=== PATIENT | male | born 1955 | race Hispanic/Latino ===

== ENCOUNTER 2021-09-10 11:09 | Emergency (ER) | payer MEDICARE, OTHER ==
[2021-09-10] MEDS ORDERED: SODIUM CHLORIDE 0.9% 1000 ML 1,000 ML IV ONE (11:17)
[2021-09-10 12:13] LABS: Basophils % (Auto) 0.6 % (0.0-1.8); Eosinophils % (Auto) 0.8 % (0.0-4.3); Lymphocytes % (Auto) 15.7 % (13.4-35.0); Monocytes % (Auto) 6.5 % (0.0-7.3)
[2021-09-10 12:18] LABS: INR 0.94 (0.87-1.13)
[2021-09-10 12:25] LABS: Basophils # (Auto) 0.1 K/mm3 (0.0-0.1); Eosinophils # (Auto) 0.1 K/mm3 (0.0-0.4); Hematocrit 44.6 % (35.5-45.6); Hemoglobin 14.8 gm/dl (11.8-15.2); Lymphocytes # (Auto) 1.3 K/mm3 (1.2-5.4); Mean Corpuscular HGB Conc 33 % (32-34); Mean Corpuscular Volume 88 fl (84-94); Monocytes # (Auto) 0.5 K/mm3 (0.0-0.8); Platelet Count 206 K/mm3 (140-440); Red Blood Count 5.07 M/mm3 (3.65-5.03); Red Cell Distribution Width 14.6 % (13.2-15.2)
[2021-09-10 12:34] LABS: Alanine Aminotransferase 18 units/L (7-56); Albumin 4.5 g/dL (3.9-5); BUN/Creatinine Ratio 24; Blood Urea Nitrogen 22 mg/dL (9-20); Calcium 9.6 mg/dL (8.4-10.2); Hemolysis Index 21
--- NOTE | 2021-09-10 13:35 | Cat Scan Report ---
CT HEAD WITHOUT CONTRAST INDICATION / CLINICAL INFORMATION: ams. TECHNIQUE: All CT scans at this location are performed using CT dose reduction for ALARA by means of automated e xposure control. COMPARISON: Head CT 06/18/2021 FINDINGS: HEMORRHAGE: No evidence of intracranial hemorrhage or extra-axial fluid collection. EXTRA-AXIAL SPACES: Cortical sulci, sylvian fissures and basilar cisterns have an unremarkable appear ance. VENTRICULAR SYSTEM: The third and lateral ventricles are of normal size and configuration. CEREBRAL PARENCHYMA: Subtle evidence of a small deep infarction in the medial aspect of the left thal amus. In retrospect this can be demonstrated on prior study 06/18/2019. No indication of recent infarct ion is observed. MIDLINE SHIFT OR HERNIATION: There is no mass effect. CEREBELLUM / BRAINSTEM: Encephalomalacia seen along the posterior aspect of the right cerebellar roxanne sphere secondary to remote right cerebellar infarction. This is unchanged. Brainstem and cerebellum h ave an otherwise unremarkable appearance. MIDLINE STRUCTURES:No abnormalities of the pituitary gland or pineal region are identified. INTRACRANIAL VESSELS: Calcified atherosclerotic plaque is seen along the course of the cavernous segm ents of both internal carotid arteries extending up into the communicating segments bilaterally. ORBITS: visualized portions of the orbits have an unremarkable appearance. SOFT TISSUES of HEAD: No significant abnormality. CALVARIUM: Evaluation of bone windows reveals no abnormalities. PARANASAL SINUSES / MASTOID AIR CELLS: Inflammatory changes are present in the right sphenoid sinus u nchanged from prior study. Visualized portions of the paranasal sinuses are otherwise free from infla mmatory mucosal disease. Mastoid air cells are normally pneumatized. Abnormal soft tissue attenuation material is present in the right external auditory canal. This could represent a pledget or cerumen. Correlation with otoscopic evaluation is advised. IMPRESSION: 1. Small deep left thalamic infarction. In retrospect this can be identified on previous head CT 2021. 2. No acute intracranial abnormality. 3. Correlation with otoscopic evaluation is advised to further evaluate an abnormality in the right e xternal auditory canal. Signer Name: Jj Willis MD Signed: 09/10/2021 1:31 PM Workstation Name: [id number]
--- NOTE | 2021-09-10 13:54 | XRay Report ---
CHEST 1 VIEW 09/10/2021 12:45 PM INDICATION / CLINICAL INFORMATION: ams. COMPARISON: 06/16/2021 FINDINGS: SUPPORT DEVICES: None. HEART / MEDIASTINUM: No significant abnormality. LUNGS / PLEURA: No significant pulmonary or pleural abnormality. No pneumothorax. ADDITIONAL FINDINGS: Right costophrenic angles is not completely included IMPRESSION: 1. No acute findings. Signer Name: Petar Freedman MD Signed: 09/10/2021 1:49 PM Workstation Name: [id number]
[2021-09-10 16:30] LABS: Amphetamine Screen,Urine Negative; Benzodiazepines Screen,Urine Negative; Cannabinoid Screen,Urine Negative; Cocaine Screen,Urine Negative; Methadone Screen,Urine Negative; Opiate Screen,Urine Negative
[2021-09-10 16:43] LABS: Bilirubin,Urine NEG (Negative); Blood,Urine NEG (Negative); Color,Urine Yellow (Yellow); Mucus,Urine 2+ /HPF; Protein,Urine <15 mg/dL mg/dL (Negative); Urobilinogen,Urine < 2.0 mg/dL (<2.0)
--- NOTE | 2021-09-10 17:18 | Emergency Department Report ---
ED Altered Mental Status HPI - General Chief Complaint: Altered Mental Status Stated Complaint: AMS Time Seen by Provider: 09/10/21 11:17 Source: EMS Mode of arrival: Stretcher Limitations: Altered Mental Status, Physical Limitation - History of Present Illness MD Complaint: altered mental status, confusion -: Gradual Severity: mild Consistency of Symptoms: constant Context: history of similar presen Associated Symptoms: denies: denies other symptoms, chest pain, cough, diaphoresis, malaise, nausea/vomiting, rash - Related Data Home Medications Medication Instructions Recorded Confirmed Last Taken Amlodipine Besylate [Norvasc] 10 mg PO DAILY 06/17/21 06/24/21 Unknown Benztropine [Cogentin] 1 mg PO DAILY 06/17/21 06/24/21 Unknown Acetaminophen [Acetaminophen TAB] 325 mg PO QAM&QHS PRN 06/22/21 06/24/21 06/16/21 ALBUTEROL NEB's [Proventil 0.083% 2.5 mg IH Q3HR PRN 06/24/21 06/24/21 Unknown NEBS] Previous Rx's Medication Instructions Recorded Last Taken Type Ondansetron [Zofran ODT TAB] 4 mg PO Q8HR PRN #20 tab.rapdis 02/28/16 Unknown Rx Aspirin EC [Ecotrin] 325 mg PO QDAY #30 tablet 06/20/18 Unknown Rx AtorvaSTATin [Lipitor] 40 mg PO QHS #30 tablet 06/20/18 Unknown Rx amLODIPine 5 mg PO QDAY #30 tablet 06/20/18 Unknown Rx Aspirin EC [Ecotrin] 325 mg PO QDAY #30 tab 06/22/21 Unknown Rx Atorvastatin Calcium [Lipitor] 80 mg PO DAILY #30 tab 06/22/21 Unknown Rx donepeziL [Aricept] 10 mg PO QDAY #30 tab 06/22/21 Unknown Rx Paliperidone [Invega] 6 mg PO DAILY 30 Days #30 06/27/21 Unknown Rx QUEtiapine [SEROquel] 25 mg PO BID 30 Days #60 tablet 06/27/21 Unknown Rx VALPROIC ACID Liq [DepaKENE Liq] 125 mg PO DAILY 30 Days #150 06/27/21 Unknown Rx oral.liqd Venlafaxine HCl [Venlafaxine] 100 mg PO DAILY 30 Days #30 06/27/21 Unknown Rx Zolpidem [Ambien] 5 mg PO QHS PRN 30 Days #15 tablet 06/27/21 Unknown Rx Allergies Allergy/AdvReac Type Severity Reaction Status Date / Time No Known Allergies Allergy Verified 09/10/21 11:21 ED Review of Systems ROS: Stated complaint: AMS Other details as noted in HPI Constitutional: denies: chills, fever Eyes: denies: eye pain, eye discharge, vision change ENT: denies: ear pain, throat pain Respiratory: denies: cough, shortness of breath, wheezing Cardiovascular: denies: chest pain, palpitations Endocrine: no symptoms reported Gastrointestinal: denies: abdominal pain, nausea, diarrhea Genitourinary: denies: urgency, dysuria Musculoskeletal: denies: back pain, joint swelling, arthralgia Skin: denies: rash, lesions Neurological: denies: headache, weakness, paresthesias Psychiatric: denies: anxiety, depression Hematological/Lymphatic: denies: easy bleeding, easy bruising ED Past Medical Hx - Past Medical History Hx Hypertension: Yes Hx CVA: Yes Hx Congestive Heart Failure: No Hx Diabetes: No Hx Renal Disease: No Hx Arthritis: No Hx Seizures: No Hx Psychiatric Treatment: Yes (Schizophrenia) Hx Asthma: No Hx COPD: No Hx Dementia: Yes Additional medical history: high cholesterol - Surgical History Hx Cholecystectomy: No Hx Appendectomy: No - Social History Smoking Status: Former Smoker - Medications Home Medications: Home Medications Medication Instructions Recorded Confirmed Last Taken Type Ondansetron [Zofran ODT TAB] 4 mg PO Q8HR PRN #20 tab.rapdis 02/28/16 06/20/18 Unknown Rx Aspirin EC [Ecotrin] 325 mg PO QDAY #30 tablet 06/20/18 Unknown Rx AtorvaSTATin [Lipitor] 40 mg PO QHS #30 tablet 06/20/18 Unknown Rx amLODIPine 5 mg PO QDAY #30 tablet 06/20/18 Unknown Rx Amlodipine Besylate [Norvasc] 10 mg PO DAILY 06/17/21 06/24/21 Unknown History Benztropine [Cogentin] 1 mg PO DAILY 06/17/21 06/24/21 Unknown History Acetaminophen [Acetaminophen TAB] 325 mg PO QAM&QHS PRN 06/22/21 06/24/21 06/16/21 History Aspirin EC [Ecotrin] 325 mg PO QDAY #30 tab 06/22/21 06/24/21 Unknown Rx Atorvastatin Calcium [Lipitor] 80 mg PO DAILY #30 tab 06/22/21 06/24/21 Unknown Rx donepeziL [Aricept] 10 mg PO QDAY #30 tab 06/22/21 06/24/21 Unknown Rx ALBUTEROL NEB's [Proventil 0.083% 2.5 mg IH Q3HR PRN 06/24/21 06/24/21 Unknown History NEBS] Paliperidone [Invega] 6 mg PO DAILY 30 Days #30 06/27/21 Unknown Rx QUEtiapine [SEROquel] 25 mg PO BID 30 Days #60 tablet 06/27/21 Unknown Rx VALPROIC ACID Liq [DepaKENE Liq] 125 mg PO DAILY 30 Days #150 06/27/21 Unknown Rx oral.liqd Venlafaxine HCl [Venlafaxine] 100 mg PO DAILY 30 Days #30 06/27/21 Unknown Rx Zolpidem [Ambien] 5 mg PO QHS PRN 30 Days #15 tablet 06/27/21 Unknown Rx ED Physical Exam - General Limitations: Altered Mental Status, Physical Limitation General appearance: alert, in no apparent distress - Head Head exam: Present: atraumatic, normocephalic - Eye Eye exam: Present: normal appearance - ENT ENT exam: Present: mucous membranes moist - Neck Neck exam: Present: normal inspection - Respiratory Respiratory exam: Present: normal lung sounds bilaterally. Absent: respiratory distress - Cardiovascular Cardiovascular Exam: Present: regular rate, normal rhythm. Absent: systolic murmur, diastolic murmur, rubs, gallop - GI/Abdominal GI/Abdominal exam: Present: soft, normal bowel sounds - Rectal Rectal exam: Present: deferred - Extremities Exam Extremities exam: Present: normal inspection - Back Exam Back exam: Present: normal inspection - Neurological Exam Neurological exam: Present: alert, oriented X3 - Psychiatric Psychiatric exam: Present: normal affect, normal mood - Skin Skin exam: Present: warm, dry, intact, normal color. Absent: rash ED Course Vital Signs 09/10/21 09/10/21 09/10/21 11:13 11:21 11:52 Temperature 97.6 F Pulse Rate 77 69 Respiratory 16 14 13 Rate Blood Pressure Blood Pressure 178/89 [Left] O2 Sat by Pulse 96 98 97 Oximetry 09/10/21 09/10/2109/10/22 12:00 13:20 14:00 Temperature Pulse Rate 76 78 58 L Respiratory 18 16 Rate Blood Pressure 137/86 137/86 135/69 Blood Pressure [Left] O2 Sat by Pulse 98 100 95 Oximetry 09/10/21 09/10/21 09/10/21 14:30 14:32 15:00 Temperature 97.9 F Pulse Rate 75 75 57 L Respiratory 16 17 Rate Blood Pressure 137/86 148/73 Blood Pressure [Left] O2 Sat by Pulse 98 99 Oximetry 09/10/21 16:00 Temperature Pulse Rate 77 Respiratory 24 Rate Blood Pressure 157/81 Blood Pressure [Left] O2 Sat by Pulse 99 Oximetry - Lab Data Result diagrams: 09/10/21 11:53 09/10/21 11:53 Lab Results 09/10/21 09/10/21 09/10/21 Range/Units 11:53 11:53 11:53 WBC 8.1 (4.5-11.0) K/mm3 RBC 5.07 H (3.65-5.03) M/mm3 Hgb 14.8 (11.8-15.2) gm/dl Hct 44.6 (35.5-45.6) % MCV 88 (84-94) fl MCH 29 (28-32) pg MCHC 33 (32-34) % RDW 14.6 (13.2-15.2) % Plt Count 206 (140-440) K/mm3 Lymph % (Auto) 15.7 (13.4-35.0) % [place] % (Auto) 6.5 (0.0-7.3) % Eos % (Auto) 0.8 (0.0-4.3) % Baso % (Auto) 0.6 (0.0-1.8) % Lymph # (Auto) 1.3 (1.2-5.4) K/mm3 [place] # (Auto) 0.5 (0.0-0.8) K/mm3 Eos # (Auto) 0.1 (0.0-0.4) K/mm3 Baso # (Auto) 0.1 (0.0-0.1) K/mm3 Seg Neutrophils % 76.4 H (40.0-70.0) % Seg Neutrophils # 6.1 (1.8-7.7) K/mm3 PT 13.6 (12.2-14.9) Sec. INR 0.94 (0.87-1.13) Sodium 139 (137-145) mmol/L Potassium 4.7 (3.6-5.0) mmol/L Chloride 105.6 (98-107) mmol/L Carbon Dioxide 20 L (22-30) mmol/L Anion Gap 18 mmol/L BUN 22 H (9-20) mg/dL Creatinine 0.9 (0.8-1.3) mg/dL Estimated GFR > 60 ml/min BUN/Creatinine Ratio 24 % Glucose 107 H (75-100) mg/dL Lactic Acid (0.7-2.0) mmol/L Calcium 9.6 (8.4-10.2) mg/dL Total Bilirubin 0.40 (0.1-1.2) mg/dL AST 14 (5-40) units/L ALT 18 (7-56) units/L Alkaline Phosphatase 126 (35-129) units/L Troponin T < 0.010 (0.00-0.029) ng/mL Total Protein 7.0 (6.3-8.2) g/dL Albumin 4.5 (3.9-5) g/dL Albumin/Globulin Ratio 1.8 % Urine Color (Yellow) Urine Turbidity (Clear) Urine pH (5.0-7.0) Ur Specific [place] (1.003-1.030) Urine Protein (Negative) mg/dL Urine Glucose (UA) (Negative) mg/dL Urine Ketones (Negative) mg/dL Urine Blood (Negative) Urine Nitrite (Negative) Urine Bilirubin (Negative) Urine Urobilinogen (<2.0) mg/dL Ur Leukocyte Esterase (Negative) Urine WBC (Auto) (0.0-6.0) /HPF Urine RBC (Auto) (0.0-6.0) /HPF U Epithel Cells (Auto) (0-13.0) /HPF Urine Mucus /HPF Salicylates (2.8-20.0) mg/dL Urine Opiates Screen Urine Methadone Screen Acetaminophen (10.0-30.0) ug/mL Ur Barbiturates Screen Ur Phencyclidine Scrn Ur Amphetamines Screen U Benzodiazepines Scrn Urine Cocaine Screen U Marijuana (THC) Screen Drugs of Abuse Note Plasma/Serum Alcohol (0-0.07) % 09/10/21 09/10/21 09/10/21 Range/Units 11:53 11:53 11:53 WBC (4.5-11.0) K/mm3 RBC (3.65-5.03) M/mm3 Hgb (11.8-15.2) gm/dl Hct (35.5-45.6) % MCV (84-94) fl MCH (28-32) pg MCHC (32-34) % RDW (13.2-15.2) % Plt Count (140-440) K/mm3 Lymph % (Auto) (13.4-35.0) % Dawson % (Auto) (0.0-7.3) % Eos % (Auto) (0.0-4.3) % Baso % (Auto) (0.0-1.8) % Lymph # (Auto) (1.2-5.4) K/mm3 [place] # (Auto) (0.0-0.8) K/mm3 Eos # (Auto) (0.0-0.4) K/mm3 Baso # (Auto) (0.0-0.1) K/mm3 Seg Neutrophils % (40.0-70.0) % Seg Neutrophils # (1.8-7.7) K/mm3 PT (12.2-14.9) Sec. INR (0.87-1.13) Sodium (137-145) mmol/L Potassium (3.6-5.0) mmol/L Chloride (98-107) mmol/L Carbon Dioxide (22-30) mmol/L Anion Gap mmol/L BUN (9-20) mg/dL Creatinine (0.8-1.3) mg/dL Estimated GFR ml/min BUN/Creatinine Ratio % Glucose (75-100) mg/dL Lactic Acid 2.20 H* (0.7-2.0) mmol/L Calcium (8.4-10.2) mg/dL Total Bilirubin (0.1-1.2) mg/dL AST (5-40) units/L ALT (7-56) units/L Alkaline Phosphatase (35-129) units/L Troponin T (0.00-0.029) ng/mL Total Protein (6.3-8.2) g/dL Albumin (3.9-5) g/dL Albumin/Globulin Ratio % Urine Color (Yellow) Urine Turbidity (Clear) Urine pH (5.0-7.0) Ur Specific [place] (1.003-1.030) Urine Protein (Negative) mg/dL Urine Glucose (UA) (Negative) mg/dL Urine Ketones (Negative) mg/dL Urine Blood (Negative) Urine Nitrite (Negative) Urine Bilirubin (Negative) Urine Urobilinogen (<2.0) mg/dL Ur Leukocyte Esterase (Negative) Urine WBC (Auto) (0.0-6.0) /HPF Urine RBC (Auto) (0.0-6.0) /HPF U Epithel Cells (Auto) (0-13.0) /HPF Urine Mucus /HPF Salicylates < 0.3 L (2.8-20.0) mg/dL Urine Opiates Screen Urine Methadone Screen Acetaminophen 5.0 L (10.0-30.0) ug/mL Ur Barbiturates Screen Ur Phencyclidine Scrn Ur Amphetamines Screen U Benzodiazepines Scrn Urine Cocaine Screen U Marijuana (THC) Screen Drugs of Abuse Note Plasma/Serum Alcohol (0-0.07) % 09/10/21 09/10/21 09/10/21 Range/Units 11:53 Unknown Unknown WBC (4.5-11.0) K/mm3 RBC (3.65-5.03) M/mm3 Hgb (11.8-15.2) gm/dl Hct (35.5-45.6) % MCV (84-94) fl MCH (28-32) pg MCHC (32-34) % RDW (13.2-15.2) % Plt Count (140-440) K/mm3 Lymph % (Auto) (13.4-35.0) % Dawson % (Auto) (0.0-7.3) % Eos % (Auto) (0.0-4.3) % Baso % (Auto) (0.0-1.8) % Lymph # (Auto) (1.2-5.4) K/mm3 [place] # (Auto) (0.0-0.8) K/mm3 Eos # (Auto) (0.0-0.4) K/mm3 Baso # (Auto) (0.0-0.1) K/mm3 Seg Neutrophils % (40.0-70.0) % Seg Neutrophils # (1.8-7.7) K/mm3 PT (12.2-14.9) Sec. INR (0.87-1.13) Sodium (137-145) mmol/L Potassium (3.6-5.0) mmol/L Chloride (98-107) mmol/L Carbon Dioxide (22-30) mmol/L Anion Gap mmol/L BUN (9-20) mg/dL Creatinine (0.8-1.3) mg/dL Estimated GFR ml/min BUN/Creatinine Ratio % Glucose (75-100) mg/dL Lactic Acid (0.7-2.0) mmol/L Calcium (8.4-10.2) mg/dL Total Bilirubin (0.1-1.2) mg/dL AST (5-40) units/L ALT (7-56) units/L Alkaline Phosphatase (35-129) units/L Troponin T (0.00-0.029) ng/mL Total Protein (6.3-8.2) g/dL Albumin (3.9-5) g/dL Albumin/Globulin Ratio % Urine Color Yellow (Yellow) Urine Turbidity Clear (Clear) Urine pH 5.0 (5.0-7.0) Ur Specific [place] 1.025 (1.003-1.030) Urine Protein <15 mg/dl (Negative) mg/dL Urine Glucose (UA) Neg (Negative) mg/dL Urine Ketones Neg (Negative) mg/dL Urine Blood Neg (Negative) Urine Nitrite Neg (Negative) Urine Bilirubin Neg (Negative) Urine Urobilinogen < 2.0 (<2.0) mg/dL Ur Leukocyte Esterase Neg (Negative) Urine WBC (Auto) 1.0 (0.0-6.0) /HPF Urine RBC (Auto) 1.0 (0.0-6.0) /HPF U Epithel Cells (Auto) < 1.0 (0-13.0) /HPF Urine Mucus 2+ /HPF Salicylates (2.8-20.0) mg/dL Urine Opiates Screen Negative Urine Methadone Screen Negative Acetaminophen (10.0-30.0) ug/mL Ur Barbiturates Screen Negative Ur Phencyclidine Scrn Negative Ur Amphetamines Screen Negative U Benzodiazepines Scrn Negative Urine Cocaine Screen Negative U Marijuana (THC) Screen Negative Drugs of Abuse Note Disclamer Plasma/Serum Alcohol < 0.01 (0-0.07) % - EKG Data -: EKG Interpreted by Me EKG shows normal: sinus rhythm Rate: normal When compared to previous EKG there are: other (bigemniy) - Radiology Data Radiology results: report reviewed, image reviewed - Medical Decision Making work up unremarkable , vss no distress, back to [facility] history of bipolar disorder Critical care attestation.: If time is entered above; I have spent that time in minutes in the direct care of this critically ill patient, excluding procedure time. ED Disposition Clinical Impression: Altered mental status, Bipolar 1 disorder Disposition: HOME / SELF CARE / HOMELESS Is pt being admited?: No Does the pt Need Aspirin: No Condition: Stable Referrals: CROW HERNANDEZ MD [Primary Care Provider] - 3-5 Days
[2021-09-10 20:00] VITALS: BP 131/60
--- NOTE | 2021-09-11 09:33 | Electrocardiograph Report ---
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
== END 2021-09-10 20:49 | disposition home or self-care (01) ==
LOC: ED 11:09
DX: R41.82 Altered mental status, unspecified (principal); F31.9 Bipolar disorder, unspecified; I10 Essential (primary) hypertension; F20.9 Schizophrenia, unspecified; R79.1 Abnormal coagulation profile; E78.00 Pure hypercholesterolemia, unspecified; Z79.82 Long term (current) use of aspirin; Z79.899 Other long term (current) drug therapy
CPT/HCPCS: 36415; 70450; 71045; 80053; 80307; 81001; 82140; 82962; 84484; 85025; 85610; 93005; 96360; 99285; J7030; 80320; G0480

== ENCOUNTER 2021-10-03 14:28 | Emergency (ER) | payer MEDICARE ==
--- NOTE | 2021-10-03 21:38 | Emergency Department Report ---
ED General Adult HPI - General Chief complaint: Medical Clearance Stated complaint: CHECKE OUT Time Seen by Provider: 10/03/21 21:25 Source: EMS ( EMS documentation not available at time of chart dictation ), RN notes reviewed, old records reviewed Mode of arrival: Stretcher Limitations: No Limitations - History of Present Illness Initial comments: The patient is a pleasant and cooperative 65-year-old gentleman who states that he presents to the emergency room because he is homeless and does not have a place to go. He denies physical pain. He denies homicidality and suicidality. He denies hallucinations, overdose, access to guns and firearms. He denies physical pain -: This evening Severity scale (0 -10): 0 Improves with: none Worsens with: none Associated Symptoms: denies other symptoms - Related Data Home Medications Medication Instructions Recorded Confirmed Last Taken Amlodipine Besylate [Norvasc] 10 mg PO DAILY 06/17/21 06/24/21 Unknown Benztropine [Cogentin] 1 mg PO DAILY 06/17/21 06/24/21 Unknown Acetaminophen [Acetaminophen TAB] 325 mg PO QAM&QHS PRN 06/22/21 06/24/21 06/16/21 ALBUTEROL NEB's [Proventil 0.083% 2.5 mg IH Q3HR PRN 06/24/21 06/24/21 Unknown NEBS] Previous Rx's Medication Instructions Recorded Last Taken Type Ondansetron [Zofran ODT TAB] 4 mg PO Q8HR PRN #20 tab.rapdis 02/28/16 Unknown Rx Aspirin EC [Ecotrin] 325 mg PO QDAY #30 tab 06/22/21 Unknown Rx Atorvastatin Calcium [Lipitor] 80 mg PO DAILY #30 tab 06/22/21 Unknown Rx donepeziL [Aricept] 10 mg PO QDAY #30 tab 06/22/21 Unknown Rx Paliperidone [Invega] 6 mg PO DAILY 30 Days #30 06/27/21 Unknown Rx QUEtiapine [SEROquel] 25 mg PO BID 30 Days #60 tablet 06/27/21 Unknown Rx VALPROIC ACID Liq [DepaKENE Liq] 125 mg PO DAILY 30 Days #150 06/27/21 Unknown Rx oral.liqd Venlafaxine HCl [Venlafaxine] 100 mg PO DAILY 30 Days #30 06/27/21 Unknown Rx Zolpidem [Ambien] 5 mg PO QHS PRN 30 Days #15 tablet 06/27/21 Unknown Rx Albuterol Sulfate [Proair 90 mcg IH Q4HR PRN #2 aer.pow.ba 10/03/21 Unknown Rx Respiclick] Aspirin EC [Ecotrin] 325 mg PO QDAY #30 tablet 10/03/21 Unknown Rx AtorvaSTATin [Lipitor] 40 mg PO QHS #30 tablet 10/03/21 Unknown Rx amLODIPine 5 mg PO QDAY #30 tablet 10/03/21 Unknown Rx Allergies Allergy/AdvReac Type Severity Reaction Status Date / Time No Known Allergies Allergy Verified 10/03/21 14:45 ED Review of Systems ROS: Stated complaint: CHECKE OUT Other details as noted in HPI Comment: All other systems reviewed and negative ED Past Medical Hx - Past Medical History Hx Hypertension: Yes Hx CVA: Yes Hx Congestive Heart Failure: No Hx Diabetes: No Hx Renal Disease: No Hx Arthritis: No Hx Seizures: No Hx Psychiatric Treatment: Yes (Schizophrenia) Hx Asthma: No Hx COPD: No Hx Dementia: Yes Additional medical history: high cholesterol - Surgical History Hx Cholecystectomy: No Hx Appendectomy: No - Social History Smoking Status: Former Smoker - Medications Home Medications: Home Medications Medication Instructions Recorded Confirmed Last Taken Type Ondansetron [Zofran ODT TAB] 4 mg PO Q8HR PRN #20 tab.rapdis 02/28/16 06/20/18 Unknown Rx Amlodipine Besylate [Norvasc] 10 mg PO DAILY 06/17/21 06/24/21 Unknown History Benztropine [Cogentin] 1 mg PO DAILY 06/17/21 06/24/21 Unknown History Acetaminophen [Acetaminophen TAB] 325 mg PO QAM&QHS PRN 06/22/21 06/24/21 06/16/21 History Aspirin EC [Ecotrin] 325 mg PO QDAY #30 tab 06/22/21 06/24/21 Unknown Rx Atorvastatin Calcium [Lipitor] 80 mg PO DAILY #30 tab 06/22/21 06/24/21 Unknown Rx donepeziL [Aricept] 10 mg PO QDAY #30 tab 06/22/21 06/24/21 Unknown Rx ALBUTEROL NEB's [Proventil 0.083% 2.5 mg IH Q3HR PRN 06/24/21 06/24/21 Unknown History NEBS] Paliperidone [Invega] 6 mg PO DAILY 30 Days #30 06/27/21 Unknown Rx QUEtiapine [SEROquel] 25 mg PO BID 30 Days #60 tablet 06/27/21 Unknown Rx VALPROIC ACID Liq [DepaKENE Liq] 125 mg PO DAILY 30 Days #150 06/27/21 Unknown Rx oral.liqd Venlafaxine HCl [Venlafaxine] 100 mg PO DAILY 30 Days #30 06/27/21 Unknown Rx Zolpidem [Ambien] 5 mg PO QHS PRN 30 Days #15 tablet 06/27/21 Unknown Rx Albuterol Sulfate [Proair 90 mcg IH Q4HR PRN #2 aer.pow.ba 10/03/21 Unknown Rx Respiclick] Aspirin EC [Ecotrin] 325 mg PO QDAY #30 tablet 10/03/21 Unknown Rx AtorvaSTATin [Lipitor] 40 mg PO QHS #30 tablet 10/03/21 Unknown Rx amLODIPine 5 mg PO QDAY #30 tablet 10/03/21 Unknown Rx ED Physical Exam - General Limitations: No Limitations General appearance: alert, in no apparent distress - Head Head exam: Present: atraumatic, normocephalic - Eye Eye exam: Present: normal appearance, EOMI. Absent: nystagmus - ENT ENT exam: Present: normal exam, normal orophraynx, mucous membranes moist, normal external ear exam - Neck Neck exam: Present: normal inspection, full ROM. Absent: tenderness, meningismus - Respiratory Respiratory exam: Present: normal lung sounds bilaterally. Absent: respiratory distress, wheezes, rales, rhonchi, stridor, decreased breath sounds - Cardiovascular Cardiovascular Exam: Present: regular rate, normal rhythm, normal heart sounds. Absent: bradycardia, tachycardia, irregular rhythm, systolic murmur, diastolic murmur, rubs, gallop - GI/Abdominal GI/Abdominal exam: Present: soft, normal bowel sounds. Absent: distended, tenderness, guarding, rebound, rigid - Rectal Rectal exam: Present: deferred - Extremities Exam Extremities exam: Present: normal inspection, full ROM, other (2+ pulses noted in the bilateral upper extremities. There is no long bony tenderness. The muscular compartments are soft. The pelvis is stable). Absent: pedal edema - Back Exam Back exam: Present: normal inspection, full ROM. Absent: tenderness, CVA tenderness (R), CVA tenderness (L), paraspinal tenderness, vertebral tenderness - Neurological Exam Neurological exam: Present: alert, normal gait, other (No facial droop. Tongue midline. Extraocular movements intact bilaterally. Facial sensation intact to light touch in V1, V2, V3 distribution bilaterally. 5 and a 5 strength in 4 extremities. Sensation intact to light touch in 4 extremities.). Absent: motor sensory deficit - Psychiatric Psychiatric exam: Present: flat affect - Skin Skin exam: Present: warm, dry, intact, normal color. Absent: rash ED Course Vital Signs 10/03/21 10/03/21 14:43 23:19 Temperature 98.7 F Pulse Rate 68 68 Respiratory 16 12 Rate Blood Pressure 130/82 136/87 [Right] O2 Sat by Pulse 99 100 Oximetry ED Medical Decision Making - Lab Data Vital Signs 10/03/21 14:43 Temperature 98.7 F Pulse Rate 68 Respiratory 16 Rate Blood Pressure 130/82 [Right] O2 Sat by Pulse 99 Oximetry - Medical Decision Making Differential diagnosis, including but not limited to: Encounter for medical screening examination, medication refill Assessment and plan: 65-year-old gentleman, who is afebrile, with reassuring vital signs, clinically sober, with a GCS of 15, who presents to the ER today with a complaint of "I need some place to stay." He denies medical complaints and physical pain. He does not endorse any psychiatric symptoms. His physical exam is benign and unremarkable. He is resting comfortably in his stretcher, and in no acute distress. He will be given a list of outpatient homeless senior care resources. He will also be given a list of primary care doctors that he may follow-up with. He does not appear to have an emergent medical psychiatric condition present at this time. Critical care attestation.: If time is entered above; I have spent that time in minutes in the direct care of this critically ill patient, excluding procedure time. ED Disposition Clinical Impression: Encounter for medical screening examination, Medication refill Disposition: 01 HOME / SELF CARE / HOMELESS Is pt being admited?: No Does the pt Need Aspirin: No Condition: Good Additional Instructions: Please take the prescribed medications as directed. Please follow-up with an outpatient primary care doctor within the next month. Please reference a list of homeless senior care resources that have been provided to the patient. Please use the [facility] ([facility] affordable prescription card to afford affordable prescriptions. Follow-up with a psychiatrist within the next month. Please return to the emergency room right away with new pain, worsened pain, migration of pain, projectile vomiting, change in mental status, confusion, inability tolerate liquid feeds, new, worsened or different symptoms not present on the initial emergency room evaluation Prescriptions: AtorvaSTATin [Lipitor] 40 mg PO QHS #30 tablet amLODIPine 5 mg PO QDAY #30 tablet Aspirin EC [Ecotrin] 325 mg PO QDAY #30 tablet Albuterol Sulfate [Proair Respiclick] 90 mcg IH Q4HR PRN #2 aer.pow.ba PRN Reason: Wheezing Referrals: [facility] [Provider Group] - 3-5 Days [facility] [Outside] - 3-5 Days [facility] [Outside] - 3-5 Days
[2021-10-03 23:20] VITALS: BP 136/87
== END 2021-10-03 23:20 | disposition home or self-care (01) ==
LOC: ED 14:28
DX: Z00.00 Encounter for general adult medical examination without abnormal findings (principal); I10 Essential (primary) hypertension; Z76.0 Encounter for issue of repeat prescription
CPT/HCPCS: 99283

== ENCOUNTER 2021-10-05 16:04 | Emergency (ER) | payer MEDICARE ==
--- NOTE | 2021-10-05 18:02 | XRay Report ---
CHEST 1 VIEW 10/05/2021 4:48 PM INDICATION / CLINICAL INFORMATION: cough. COMPARISON: 09/10/21 FINDINGS: SUPPORT DEVICES: None. HEART / MEDIASTINUM: No significant abnormality. LUNGS / PLEURA: No significant pulmonary or pleural abnormality. No pneumothorax. ADDITIONAL FINDINGS: No significant additional findings. IMPRESSION: 1. No acute findings. Signer Name: Ede Dennis MD Signed: 10/05/2021 5:58 PM Workstation Name: [id number]
[2021-10-05 18:15] LABS: Basophils # (Auto) 0.1 K/mm3 (0.0-0.1); Basophils % (Auto) 0.6 % (0.0-1.8); Eosinophils % (Auto) 0.3 % (0.0-4.3); Lymphocytes # (Auto) 1.4 K/mm3 (1.2-5.4); Lymphocytes % (Auto) 10.2 % (13.4-35.0); Mean Corpuscular HGB Conc 36 % (32-34); Mean Corpuscular Volume 84 fl (84-94); Monocytes # (Auto) 1.5 K/mm3 (0.0-0.8); Monocytes % (Auto) 10.8 % (0.0-7.3); Platelet Count 278 K/mm3 (140-440); Red Blood Count 5.14 M/mm3 (3.65-5.03); Red Cell Distribution Width 14.4 % (13.2-15.2)
[2021-10-05 18:16] LABS: Hematocrit 43.1 % (35.5-45.6); Hemoglobin 15.4 gm/dl (11.8-15.2)
--- NOTE | 2021-10-05 18:28 | Emergency Department Report ---
ED General Adult HPI - General Chief complaint: Weakness Stated complaint: CANT STAND Source: patient Mode of arrival: Ambulatory Limitations: No Limitations - History of Present Illness Initial comments: Patient is a 65-year-old male with a history of COPD and hypertension who presents to the ED with complaint of generalized weakness and inability to bear weight and walk for the last 1 week. Patient states that the symptoms have been persistent and constant especially in the last 2 days. Patient also complains of persistent dry cough for 1 week. Patient denies dizziness, syncope, chest pain, nausea and vomiting, shortness of breath, abdominal pain, diarrhea, dysuria, urinary frequency and urgency, neck pain, back pain, fall, traumatic injury or heavy lifting, numbness and tingling or weakness of lower extremities bilaterally. MD Complaint: Generalized weakness; unable to walk -: Sudden, week(s) (1) Location: lower extremity (Lower extremities bilaterally) Radiation: non-radiation Severity scale (0 -10): 6 Quality: aching, dull Consistency: constant Improves with: none Worsens with: movement Associated Symptoms: denies other symptoms, loss of appetite, malaise, weakness. denies: confusion, cough, diaphoresis, fever/chills, headaches, nausea/vomiting, rash, seizure, shortness of breath, syncope Treatments Prior to Arrival: none - Related Data Home Medications Medication Instructions Recorded Confirmed Last Taken Amlodipine Besylate [Norvasc] 10 mg PO DAILY 06/17/21 06/24/21 Unknown Benztropine [Cogentin] 1 mg PO DAILY 06/17/21 06/24/21 Unknown Acetaminophen [Acetaminophen TAB] 325 mg PO QAM&QHS PRN 06/22/21 06/24/21 06/16/21 ALBUTEROL NEB's [Proventil 0.083% 2.5 mg IH Q3HR PRN 06/24/21 06/24/21 Unknown NEBS] Previous Rx's Medication Instructions Recorded Last Taken Type Ondansetron [Zofran ODT TAB] 4 mg PO Q8HR PRN #20 tab.rapdis 02/28/16 Unknown Rx Aspirin EC [Ecotrin] 325 mg PO QDAY #30 tab 06/22/21 Unknown Rx Atorvastatin Calcium [Lipitor] 80 mg PO DAILY #30 tab 06/22/21 Unknown Rx donepeziL [Aricept] 10 mg PO QDAY #30 tab 06/22/21 Unknown Rx Paliperidone [Invega] 6 mg PO DAILY 30 Days #30 06/27/21 Unknown Rx QUEtiapine [SEROquel] 25 mg PO BID 30 Days #60 tablet 06/27/21 Unknown Rx VALPROIC ACID Liq [DepaKENE Liq] 125 mg PO DAILY 30 Days #150 06/27/21 Unknown Rx oral.liqd Venlafaxine HCl [Venlafaxine] 100 mg PO DAILY 30 Days #30 06/27/21 Unknown Rx Zolpidem [Ambien] 5 mg PO QHS PRN 30 Days #15 tablet 06/27/21 Unknown Rx Albuterol Sulfate [Proair 90 mcg IH Q4HR PRN #2 aer.pow.ba 10/03/21 Unknown Rx Respiclick] Aspirin EC [Ecotrin] 325 mg PO QDAY #30 tablet 10/03/21 Unknown Rx AtorvaSTATin [Lipitor] 40 mg PO QHS #30 tablet 10/03/21 Unknown Rx amLODIPine 5 mg PO QDAY #30 tablet 10/03/21 Unknown Rx Allergies Allergy/AdvReac Type Severity Reaction Status Date / Time No Known Allergies Allergy Verified 10/03/21 14:45 ED Review of Systems ROS: Stated complaint: CANT STAND Other details as noted in HPI Constitutional: malaise, weakness. denies: chills, fever Eyes: denies: eye pain, eye discharge, vision change ENT: denies: ear pain, throat pain Respiratory: denies: cough, shortness of breath, wheezing Cardiovascular: denies: chest pain, palpitations Endocrine: no symptoms reported Gastrointestinal: denies: abdominal pain, nausea, vomiting, diarrhea Genitourinary: denies: urgency, dysuria Musculoskeletal: denies: back pain, joint swelling, arthralgia Skin: denies: rash, lesions Neurological: denies: headache, weakness, paresthesias Psychiatric: denies: anxiety, depression Hematological/Lymphatic: denies: easy bleeding, easy bruising ED Past Medical Hx - Past Medical History Hx Hypertension: Yes Hx CVA: Yes Hx Congestive Heart Failure: No Hx Diabetes: No Hx Renal Disease: No Hx Arthritis: No Hx Seizures: No Hx Psychiatric Treatment: Yes (Schizophrenia) Hx Asthma: No Hx COPD: Yes Hx Dementia: Yes Additional medical history: high cholesterol - Surgical History Hx Cholecystectomy: No Hx Appendectomy: No - Social History Smoking Status: Former Smoker - Medications Home Medications: Home Medications Medication Instructions Recorded Confirmed Last Taken Type Ondansetron [Zofran ODT TAB] 4 mg PO Q8HR PRN #20 tab.rapdis 02/28/16 06/20/18 Unknown Rx Amlodipine Besylate [Norvasc] 10 mg PO DAILY 06/17/21 06/24/21 Unknown History Benztropine [Cogentin] 1 mg PO DAILY 06/17/21 06/24/21 Unknown History Acetaminophen [Acetaminophen TAB] 325 mg PO QAM&QHS PRN 06/22/21 06/24/21 06/16/21 History Aspirin EC [Ecotrin] 325 mg PO QDAY #30 tab 06/22/21 06/24/21 Unknown Rx Atorvastatin Calcium [Lipitor] 80 mg PO DAILY #30 tab 06/22/21 06/24/21 Unknown Rx donepeziL [Aricept] 10 mg PO QDAY #30 tab 06/22/21 06/24/21 Unknown Rx ALBUTEROL NEB's [Proventil 0.083% 2.5 mg IH Q3HR PRN 06/24/21 06/24/21 Unknown History NEBS] Paliperidone [Invega] 6 mg PO DAILY 30 Days #30 06/27/21 Unknown Rx QUEtiapine [SEROquel] 25 mg PO BID 30 Days #60 tablet 06/27/21 Unknown Rx VALPROIC ACID Liq [DepaKENE Liq] 125 mg PO DAILY 30 Days #150 06/27/21 Unknown Rx oral.liqd Venlafaxine HCl [Venlafaxine] 100 mg PO DAILY 30 Days #30 06/27/21 Unknown Rx Zolpidem [Ambien] 5 mg PO QHS PRN 30 Days #15 tablet 06/27/21 Unknown Rx Albuterol Sulfate [Proair 90 mcg IH Q4HR PRN #2 aer.pow.ba 10/03/21 Unknown Rx Respiclick] Aspirin EC [Ecotrin] 325 mg PO QDAY #30 tablet 10/03/21 Unknown Rx AtorvaSTATin [Lipitor] 40 mg PO QHS #30 tablet 10/03/21 Unknown Rx amLODIPine 5 mg PO QDAY #30 tablet 10/03/21 Unknown Rx ED Physical Exam - General Limitations: No Limitations General appearance: alert, in no apparent distress - Head Head exam: Present: atraumatic, normocephalic, normal inspection - Eye Eye exam: Present: normal appearance, PERRL, EOMI Pupils: Present: normal accommodation - ENT ENT exam: Present: normal exam, normal orophraynx, mucous membranes moist, TM's normal bilaterally, normal external ear exam - Neck Neck exam: Present: normal inspection, full ROM - Respiratory Respiratory exam: Present: normal lung sounds bilaterally. Absent: respiratory distress, wheezes, rales, chest wall tenderness, accessory muscle use, decreased breath sounds - Cardiovascular Cardiovascular Exam: Present: normal rhythm, tachycardia, normal heart sounds. Absent: systolic murmur, diastolic murmur, rubs, gallop - GI/Abdominal GI/Abdominal exam: Present: soft, normal bowel sounds. Absent: tenderness, guarding, hyperactive bowel sounds, hypoactive bowel sounds, organomegaly, bruit - Extremities Exam Extremities exam: Present: normal inspection, full ROM, normal capillary refill. Absent: tenderness, pedal edema, joint swelling - Back Exam Back exam: Present: normal inspection, full ROM. Absent: tenderness, CVA tenderness (R), CVA tenderness (L), muscle spasm, paraspinal tenderness, vertebral tenderness - Neurological Exam Neurological exam: Present: alert, oriented X3, CN II-XII intact, reflexes normal, other (Gait not tested, patient declined to get out of the chair) - Psychiatric Psychiatric exam: Present: depressed, flat affect. Absent: homicidal ideation, suicidal ideation - Skin Skin exam: Present: warm, dry, intact, normal color. Absent: rash ED Medical Decision Making - Lab Data Result diagrams: 10/05/21 17:32 - Medical Decision Making This is a 65-year-old male with a history of COPD and hypertension who presents to the ED with complaint of generalized weakness and inability to bear weight and walk for the last 1 week. Patient states that the symptoms have be en persistent and constant especially in the last 2 days. Patient also complains of persistent dry cough for 1 week. In the ED, patient is alert and oriented x3 and is not in any distress. Patient is afebrile but tachycardic in triage. Labs were drawn, chest x-ray ordered. Patient care was transferred to the ED attending physician who shall review the patient's lab test results, imaging reports, reevaluate the patient and make appropriate disposition. - Differential Diagnosis Pneumonia; bronchitis; muscle spasm; lumbar radiculopathy Critical care attestation.: If time is entered above; I have spent that time in minutes in the direct care of this critically ill patient, excluding procedure time. ED Disposition Clinical Impression: Generalized weakness Disposition: 30 STILL A PATIENT Is pt being admited?: No Condition: Stable
[2021-10-05 18:33] LABS: Alanine Aminotransferase 16 units/L (7-56); Albumin 4.8 g/dL (3.9-5); BUN/Creatinine Ratio 25; Blood Urea Nitrogen 30 mg/dL (9-20); Calcium 10.5 mg/dL (8.4-10.2); Hemolysis Index 0
--- NOTE | 2021-10-06 03:29 | Emergency Department Report ---
ED General Adult HPI - General Chief complaint: Weakness Stated complaint: CANT STAND Time Seen by Provider: 10/06/21 02:43 Source: patient Mode of arrival: Ambulatory Limitations: No Limitations - History of Present Illness Initial comments: patient presents with complaints of generalized weakness. Patient allegedly had been seen by a midlevel provider, who reportedly requested that patient be seen by an MD in the main ER. This was done 5 hours prior to the start of my shift. Patient was not seen by a provider for another 9 hours (patient was in re assessment area outside of main ER). Patient denies any BAEZ, CP, SOB, palpitations, abd pain, focal numbness, pain in his extremities, dysuria, frequency, urgency, back pain. Patient takes atorvastatin for hyperlipidemia. Location: lower extremity (Lower extremities bilaterally) Severity scale (0 -10): 6 Quality: aching, dull Improves with: none Worsens with: movement Associated Symptoms: denies other symptoms, loss of appetite, malaise, weakness. denies: confusion, cough, diaphoresis, fever/chills, headaches, nausea/vomiting, rash, seizure, shortness of breath, syncope Treatments Prior to Arrival: none - Related Data Home Medications Medication Instructions Recorded Confirmed Last Taken Amlodipine Besylate [Norvasc] 10 mg PO DAILY 06/17/21 06/24/21 Unknown Benztropine [Cogentin] 1 mg PO DAILY 06/17/21 06/24/21 Unknown Acetaminophen [Acetaminophen TAB] 325 mg PO QAM&QHS PRN 06/22/21 06/24/21 06/16/21 ALBUTEROL NEB's [Proventil 0.083% 2.5 mg IH Q3HR PRN 06/24/21 06/24/21 Unknown NEBS] Previous Rx's Medication Instructions Recorded Last Taken Type Ondansetron [Zofran ODT TAB] 4 mg PO Q8HR PRN #20 tab.rapdis 02/28/16 Unknown Rx Aspirin EC [Ecotrin] 325 mg PO QDAY #30 tab 06/22/21 Unknown Rx Atorvastatin Calcium [Lipitor] 80 mg PO DAILY #30 tab 06/22/21 Unknown Rx donepeziL [Aricept] 10 mg PO QDAY #30 tab 06/22/21 Unknown Rx Paliperidone [Invega] 6 mg PO DAILY 30 Days #30 06/27/21 Unknown Rx QUEtiapine [SEROquel] 25 mg PO BID 30 Days #60 tablet 06/27/21 Unknown Rx VALPROIC ACID Liq [DepaKENE Liq] 125 mg PO DAILY 30 Days #150 06/27/21 Unknown Rx oral.liqd Venlafaxine HCl [Venlafaxine] 100 mg PO DAILY 30 Days #30 06/27/21 Unknown Rx Zolpidem [Ambien] 5 mg PO QHS PRN 30 Days #15 tablet 06/27/21 Unknown Rx Albuterol Sulfate [Proair 90 mcg IH Q4HR PRN #2 aer.pow.ba 10/03/21 Unknown Rx Respiclick] Aspirin EC [Ecotrin] 325 mg PO QDAY #30 tablet 10/03/21 Unknown Rx AtorvaSTATin [Lipitor] 40 mg PO QHS #30 tablet 10/03/21 Unknown Rx amLODIPine 5 mg PO QDAY #30 tablet 10/03/21 Unknown Rx Allergies Allergy/AdvReac Type Severity Reaction Status Date / Time No Known Allergies Allergy Verified 10/03/21 14:45 ED Review of Systems ROS: Stated complaint: CANT STAND Other details as noted in HPI Comment: All other systems reviewed and negative Constitutional: denies: chills, fever ED Past Medical Hx - Past Medical History Hx Hypertension: Yes Hx CVA: Yes Hx Congestive Heart Failure: No Hx Diabetes: No Hx Renal Disease: No Hx Arthritis: No Hx Seizures: No Hx Psychiatric Treatment: Yes (Schizophrenia) Hx Asthma: No Hx COPD: Yes Hx Dementia: Yes Additional medical history: high cholesterol - Surgical History Hx Cholecystectomy: No Hx Appendectomy: No - Social History Smoking Status: Former Smoker - Medications Home Medications: Home Medications Medication Instructions Recorded Confirmed Last Taken Type Ondansetron [Zofran ODT TAB] 4 mg PO Q8HR PRN #20 tab.rapdis 02/28/16 06/20/18 Unknown Rx Amlodipine Besylate [Norvasc] 10 mg PO DAILY 06/17/21 06/24/21 Unknown History Benztropine [Cogentin] 1 mg PO DAILY 06/17/21 06/24/21 Unknown History Acetaminophen [Acetaminophen TAB] 325 mg PO QAM&QHS PRN 06/22/21 06/24/21 06/16/21 History Aspirin EC [Ecotrin] 325 mg PO QDAY #30 tab 06/22/21 06/24/21 Unknown Rx Atorvastatin Calcium [Lipitor] 80 mg PO DAILY #30 tab 06/22/21 06/24/21 Unknown Rx donepeziL [Aricept] 10 mg PO QDAY #30 tab 06/22/21 06/24/21 Unknown Rx ALBUTEROL NEB's [Proventil 0.083% 2.5 mg IH Q3HR PRN 06/24/21 06/24/21 Unknown H istory NEBS] Paliperidone [Invega] 6 mg PO DAILY 30 Days #30 06/27/21 Unknown Rx QUEtiapine [SEROquel] 25 mg PO BID 30 Days #60 tablet 06/27/21 Unknown Rx VALPROIC ACID Liq [DepaKENE Liq] 125 mg PO DAILY 30 Days #150 06/27/21 Unknown Rx oral.liqd Venlafaxine HCl [Venlafaxine] 100 mg PO DAILY 30 Days #30 06/27/21 Unknown Rx Zolpidem [Ambien] 5 mg PO QHS PRN 30 Days #15 tablet 06/27/21 Unknown Rx Albuterol Sulfate [Proair 90 mcg IH Q4HR PRN #2 aer.pow.ba 10/03/21 Unknown Rx Respiclick] Aspirin EC [Ecotrin] 325 mg PO QDAY #30 tablet 10/03/21 Unknown Rx AtorvaSTATin [Lipitor] 40 mg PO QHS #30 tablet 10/03/21 Unknown Rx amLODIPine 5 mg PO QDAY #30 tablet 10/03/21 Unknown Rx ED Physical Exam - General Limitations: No Limitations General appearance: alert, in no apparent distress, other (unkempt) - Head Head exam: Present: atraumatic, normocephalic - Eye Eye exam: Present: PERRL, EOMI - ENT ENT exam: Present: mucous membranes moist, other (airway patent) - Neck Neck exam: Present: other (supple; no JVD) - Respiratory Respiratory exam: Present: other (good air entry, nml I:E, CTAB, no use of LIDIA) - Cardiovascular Cardiovascular Exam: Present: regular rate. Absent: rubs, gallop - GI/Abdominal GI/Abdominal exam: Present: soft, normal bowel sounds. Absent: distended, tenderness - Back Exam Back exam: Present: full ROM. Absent: CVA tenderness (R), CVA tenderness (L) - Neurological Exam Neurological exam: Present: alert, oriented X3, CN II-XII intact, other (NIH 0). Absent: motor sensory deficit - Skin Skin exam: Present: warm, dry ED Course Vital Signs 10/05/21 10/06/21 10/06/21 16:18 04:49 04:52 Temperature 97.7 F 98.1 F Pulse Rate 117 H Respiratory 20 13 Rate Blood Pressure 130/89 O2 Sat by Pulse 96 Oximetry 10/06/21 10/06/21 10/06/21 05:01 05:15 05:31 Temperature Pulse Rate 74 71 67 Respiratory 12 13 13 Rate Blood Pressure 149/79 147/69 143/64 O2 Sat by Pulse 98 98 99 Oximetry 10/06/21 10/06/21 05:45 06:01 Temperature Pulse Rate 68 67 Respiratory 14 17 Rate Blood Pressure 155/68 135/70 O2 Sat by Pulse 98 98 Oximetry ED Medical Decision Making - Lab Data Result diagrams: 10/05/21 17:32 10/05/21 17:32 - Medical Decision Making Laboratory Tests 10/05/21 10/05/21 10/06/21 17:32 17:32 03:29 WBC 13.9 H RBC 5.14 H Hgb 15.4 H Hct 43.1 MCV 84 MCH 30 MCHC 36 H RDW 14.4 Plt Count 278 Lymph % (Auto) 10.2 L [place] % (Auto) 10.8 H Eos % (Auto) 0.3 Baso % (Auto) 0.6 Lymph # (Auto) 1.4 [place] # (Auto) 1.5 H Eos # (Auto) 0.0 Baso # (Auto) 0.1 Seg Neutrophils % 78.1 H Seg Neutrophils # 10.9 H Sodium 141 Potassium 4.0 Chloride 104.3 Carbon Dioxide 18 L Anion Gap 23 BUN 30 H Creatinine 1.2 Estimated GFR > 60 BUN/Creatinine Ratio 25 Glucose 138 H Calcium 10.5 H Total Bilirubin 0.80 AST 33 ALT 16 Alkaline Phosphatase 128 Total Creatine Kinase Troponin T < 0.010 < 0.010 Total Protein 7.3 Albumin 4.8 Albumin/Globulin Ratio 1.9 Urine Color Urine Turbidity Urine pH Ur Specific Center Urine Protein Urine Glucose (UA) Urine Ketones Urine Blood Urine Nitrite Urine Bilirubin Urine Urobilinogen Ur Leukocyte Esterase Urine WBC (Auto) Urine RBC (Auto) Hyaline Casts Urine Mucus Urine Opiates Screen Urine Methadone Screen Ur Barbiturates Screen Ur Phencyclidine Scrn Ur Amphetamines Screen U Benzodiazepines Scrn Urine Cocaine Screen U Marijuana (THC) Screen Drugs of Abuse Note Plasma/Serum Alcohol 10/06/21 10/06/21 10/06/21 03:29 03:29 04:00 WBC RBC Hgb Hct MCV MCH MCHC RDW Plt Count Lymph % (Auto) [place] % (Auto) Eos % (Auto) Baso % (Auto) Lymph # (Auto) [place] # (Auto) Eos # (Auto) Baso # (Auto) Seg Neutrophils % Seg Neutrophils # Sodium Potassium Chloride Carbon Dioxide Anion Gap BUN Creatinine Estimated GFR BUN/Creatinine Ratio Glucose Calcium Total Bilirubin AST ALT Alkaline Phosphatase Total Creatine Kinase 1372 H Troponin T Total Protein Albumin Albumin/Globulin Ratio Urine Color Yellow Urine Turbidity Clear Urine pH 5.0 Ur Specific Center 1.028 Urine Protein <15 mg/dl Urine Glucose (UA) Neg Urine Ketones Tr Urine Blood Neg Urine Nitrite Neg Urine Bilirubin Neg Urine Urobilinogen 2.0 Ur Leukocyte Esterase Neg Urine WBC (Auto) 2.0 Urine RBC (Auto) 1.0 Hyaline Casts 6 Urine Mucus 3+ Urine Opiates Screen Urine Methadone Screen Ur Barbiturates Screen Ur Phencyclidine Scrn Ur Amphetamines Screen U Benzodiazepines Scrn Urine Cocaine Screen U Marijuana (THC) Screen Drugs of Abuse Note Plasma/Serum Alcohol < 0.01 10/06/21 04:00 WBC RBC Hgb Hct MCV MCH MCHC RDW Plt Count Lymph % (Auto) [place] % (Auto) Eos % (Auto) Baso % (Auto) Lymph # (Auto) [place] # (Auto) Eos # (Auto) Baso # (Auto) Seg Neutrophils % Seg Neutrophils # Sodium Potassium Chloride Carbon Dioxide Anion Gap BUN Creatinine Estimated GFR BUN/Creatinine Ratio Glucose Calcium Total Bilirubin AST ALT Alkaline Phosphatase Total Creatine Kinase Troponin T Total Protein Albumin Albumin/Globulin Ratio Urine Color Urine Turbidity Urine pH Ur Specific Center Urine Protein Urine Glucose (UA) Urine Ketones Urine Blood Urine Nitrite Urine Bilirubin Urine Urobilinogen Ur Leukocyte Esterase Urine WBC (Auto) Urine RBC (Auto) Hyaline Casts Urine Mucus Urine Opiates Screen Presumptive negative Urine Methadone Screen Presumptive negative Ur Barbiturates Screen Presumptive negative Ur Phencyclidine Scrn Presumptive negative Ur Amphetamines Screen Presumptive negative U Benzodiazepines Scrn Presumptive negative Urine Cocaine Screen Presumptive negative U Marijuana (THC) Screen Presumptive negative Drugs of Abuse Note Disclamer Plasma/Serum Alcohol EKG: HR 66, SR, nml intervals, no siginificant ST changes in contiguous leads CXR: no acute cardiopulmonary process CT head: no acute intracranial process Diff dz: likely 2/2 rhabdomyolysis possibly from heat exhaustion vs statin induced myopathy. No consequential BRYAN. ICH, pneumonia, UTI ruled out. Ischemic CVA, ACS unlikely. Recieved NS 1L bolus x 1. HR 84 afterwards. Feels a lot better. Critical care attestation.: If time is entered above; I have spent that time in minutes in the direct care of this critically ill patient, excluding procedure time. ED Disposition Clinical Impression: Generalized weakness Disposition: 01 HOME / SELF CARE / HOMELESS Is pt being admited?: No Does the pt Need Aspirin: No Condition: Stable Instructions: Fatigue Additional Instructions: Follow up with your regular doctor in 2 - 4 days. Hold off on taking your atorvastatin till then. Drink lots of fluids. Return to the ER if your symptoms worsen or do not improve. Referrals: PRIMARY CARE, [Primary Care Provider] - 3-5 Days
--- NOTE | 2021-10-06 03:33 | Cat Scan Report ---
CT HEAD WITHOUT CONTRAST INDICATION / CLINICAL INFORMATION: Generalized weakness. TECHNIQUE: CT head was performed without administration of intravenous contrast. All CT scans at this location are performed using CT dose reduction for ALARA by means of automated exposure control. COMPARISON: CT head 09/10/2021 FINDINGS: CEREBRAL HEMISPHERES: There is no evidence of large territorial infarction or significant abnormality of linares-white matter differentiation. Small lacunar infarctions within the left thalamus. HEMORRHAGE: None. CEREBELLUM / BRAINSTEM: No significant abnormality. ORBITS: No significant abnormality. SOFT TISSUES: No significant abnormality. SKULL: No significant abnormality. PARANASAL SINUSES / MASTOID AIR CELLS: Normal as visualized. ADDITIONAL FINDINGS: None. IMPRESSION: 1. No acute intracranial abnormality. Signer Name: Eber Tristan II, MD Signed: 10/06/2021 3:29 AM Workstation Name: [id number]
[2021-10-06 04:14] LABS: Bilirubin,Urine NEG (Negative); Blood,Urine NEG (Negative); Color,Urine Yellow (Yellow); Hyaline Casts,Urine 6 /LPF; Mucus,Urine 3+ /HPF; Protein,Urine <15 mg/dL mg/dL (Negative)
[2021-10-06 04:22] LABS: Amphetamine Screen,Urine PRESUMPTIVE NEGATIVE; Benzodiazepines Screen,Urine PRESUMPTIVE NEGATIVE; Cannabinoid Screen,Urine PRESUMPTIVE NEGATIVE; Cocaine Screen,Urine PRESUMPTIVE NEGATIVE; Methadone Screen,Urine PRESUMPTIVE NEGATIVE; Opiate Screen,Urine PRESUMPTIVE NEGATIVE
[2021-10-06] MEDS ORDERED: SODIUM CHLORIDE 0.9% 1000 ML 1,000 ML IV ONE (04:36)
[2021-10-06 06:48] VITALS: BP 135/70
--- NOTE | 2021-10-06 10:36 | Electrocardiograph Report ---
[facility] Test Date: 2021-10-06 Test Time: 04:34:13 Pat Name: MELINDA MAGANA Department: Room: Gender: M [employer] Supervisor: ARNULFO : 1955 Requested By: HAYDEE SANCHEZ Order Number: [id number] Reading MD: Manuel Vazquez Measurements Intervals [place] Rate: 69 P: 37 [place]: 191 QRS: -52 QRSD: 99 T: 100 QT: 414 QTc: 443 Interpretive Statements Sinus rhythm Inferior infarct, old Nonspecific T abnormalities, lateral leads Compared to ECG 09/10/2021 12:07:20 T-wave abnormality now present Atrial premature complex(es) no longer present Myocardial infarct finding still present Electronically Signed On 10-06-2021 10:36:10 EDT by Manuel Vazquez
== END 2021-10-06 06:49 | disposition home or self-care (01) ==
LOC: ED 16:04
DX: R53.1 Weakness (principal); Z87.891 Personal history of nicotine dependence; I10 Essential (primary) hypertension
CPT/HCPCS: 36415; 70450; 71045; 80053; 80307; 81001; 82550; 84484; 85025; 93005; 96360; 99284; J7030; 80320; G0480